=== PATIENT | female | born 1950 | race African-American/Black ===

== ENCOUNTER 2021-03-07 11:53 | Emergency (ER) | payer MEDICARE, OTHER ==
[~2021-03-07] VITALS: Ht 160 cm; Wt 72.0 kg
[2021-03-07 12:10] VITALS: BP 161/66
--- NOTE | 2021-03-07 12:39 | PHYS DOC ---
Past History Additional Past Medical Histor: states she has "8 different personalities" Past Surgical History: No Surgical History General Adult EDM: Chief Complaint: MEDICATION REFILL HPI: HPI: 70-year-old female presents to the emergency room with concern about her prescription medications for schizophrenia and bipolar disorder. The patient has a long psychiatric history. She is seeing "Dr. Bravo" at [facility]. She has been prescribing Thorazine and Valium. The patient took her last Valium this morning while [facility]. The [facility] sent the patient over here for potential medication assistance. The patient tells me that the Thorazine has started to create side effects. She was on aripiprazole in the past and would like to go back on this medication. She denies any other medical complaints at this time. Review of Systems: Review of Systems: Constitutional: Denies fever or chills Eyes: Denies change in visual acuity HENT: Denies nasal congestion or sore throat Respiratory: Denies cough or shortness of breath Cardiovascular: Denies chest pain or edema GI: Denies abdominal pain, nausea, vomiting, bloody stools or diarrhea : Denies dysuria Musculoskeletal: Denies back pain or joint pain Integument: Denies rash Neurologic: Denies headache, focal weakness or sensory changes Endocrine: Denies polyuria or polydipsia Lymphatic: Denies swollen glands Psychiatric: Anxiety, schizophrenia Physical Exam: PE: Constitutional: Well developed, well nourished, no acute distress, non-toxic appearance. [] HENT: Normocephalic, atraumatic, bilateral external ears normal, oropharynx moist, no oral exudates, nose normal. [] Eyes: PERRLA, EOMI, conjunctiva normal, no discharge. [] Neck: Normal range of motion, no tenderness, supple, no stridor. [] Cardiovascular: Heart rate regular rhythm, no murmur [] Lungs & Thorax: Bilateral breath sounds clear to auscultation [] Abdomen: Bowel sounds normal, soft, no tenderness, no masses, no pulsatile masses. [] Skin: Warm, dry, no erythema, no rash. [] Back: No tenderness, no CVA tenderness. [] Extremities: No tenderness, no cyanosis, no clubbing, ROM intact, no edema. [] Neurologic: Alert and oriented X 3, normal motor function, normal sensory function, no focal deficits noted. [] Psychologic: Affect normal, judgement normal, mood anxious. [] Current Patient Data: Vital Signs: Vital Signs Date Time Temp Pulse Resp B/P (MAP) Pulse Ox O2 Delivery O2 Flow Rate FiO2 03/07/21 12:10 98.0 97 18 161/66 (97) 100 Room Air EKG: EKG: [] Radiology/Procedures: Radiology/Procedures: [] Heart Score: C/O Chest Pain: N/A Risk Factors: Risk Factors: DM, Current or recent (<one month) smoker, HTN, HLP, family history of CAD, obesity. Risk Scores: Score 0 - 3: 2.5% MACE over next 6 weeks - Discharge Home Score 4 - 6: 20.3% MACE over next 6 weeks - Admit for Clinical Observation Score 7 - 10: 72.7% MACE over next 6 weeks - Early Invasive Strategies Course & Med Decision Making: Course & Med Decision Making Pertinent Labs and Imaging studies reviewed. (See chart for details) The patient's primary concern is running out of her medication and having a psychotic episode. [facility] but is going to be several days if not a few weeks. I spoke with the staff [facility] who is familiar with the patient. They were not comfortable extending her changing her behavioral health medications because they are concerned that she has not stabilized yet. They advised consideration of inpatient management. I spoke with the patient about inpatient management and she does not want to do that at this time. She denies any suicidal or homicidal ideation. It is my opinion that she is functioning adequately for herself at this time. She is completely lucid and aware. She is in control of herself and I do not believe involuntary admission would be warranted. The patient [facility] for [facility] within a week. I will start her on aripiprazole 10 mg for 1 week and give her a short course of 5 mg Valium to get her through the next week. She is stable for discharge at this time. [] Dragon Disclaimer: Dragon Disclaimer: This electronic medical record was generated, in whole or in part, using a voice recognition dictation system. Departure Departure: Impression: Primary Impression: Schizophrenia Additional Impression: Dissociative identity disorder Disposition: HOME / SELF CARE / HOMELESS Condition: STABLE Referrals: PAOLO BARKER MD (PCP) Patient Instructions: Schizophrenia Scripts Diazepam (VALIUM) 5 Mg Tablet 5 MG PO BID PRN for ANXIETY / AGITATION for 5 Days, #10 TAB Prov: SHAILA COELLO DO 03/07/21 Aripiprazole (ABILIFY) 10 Mg Tablet 1 TAB PO DAILY for schizophrenia for 7 Days, #7 TAB 0 Refills Prov: SHAILA COELLO DO 03/07/21 SHAILA COELLO DO Mar 07, 2021 12:39
[2021-03-07] MEDS ORDERED: DIAZ5TAB PO (13:57)
[2021-03-07] MEDS ORDERED: ARIP10TA9 PO (13:57)
== END 2021-03-07 14:08 | disposition home or self-care (01) ==
LOC: ER 11:53
DX: F20.9 Schizophrenia, unspecified (principal); F44.81 Dissociative identity disorder; F31.9 Bipolar disorder, unspecified; Z76.0 Encounter for issue of repeat prescription
CPT/HCPCS: 99281